=== PATIENT | female | born 1980 | race African-American/Black ===

== ENCOUNTER 2019-09-15 14:11 | Inpatient (IN) | payer SELFPAY ==
[~2019-09-15 14:11] MED LIST: Iopamidol-370 76% 500 ML 1 ML ONE
--- NOTE | 2019-09-15 14:29 | CT ---
CT HEAD WITHOUT IV CONTRAST COMPARISON: None HISTORY: Stroke alert, facial droop. Altered mental status. Unsteady on feet. TECHNIQUE: Axial CT imaging at 5 mm intervals from vertex through skull base without contrast FINDINGS: There is no evidence of an acute infarction, hemorrhage, mass effect, or midline shift. The ventricul ar system is normal in size, shape, and position. Opacification of multiple ethmoidal air cells is present. Mucosal thickening is seen throughout the r emainder of the visualized paranasal sinuses with suggestion of tiny air-fluid levels in the right maxillary antrum and each sphenoid sinus. Mastoid air cells are clear. Osseous structures appear intact. IMPRESSION: 1. No acute intracranial abnormality demonstrated. 2. Pansinus disease with a few scattered air-fluid levels seen which can be seen with acute sinusitis . There is suggestion of minimal increased density seen in areas of ethmoidal air cell opacification which may be related to inspissated secretions or fungal infection. 3. Above findings discussed with Dr. Gonsalez in the emergency department on 09/15/2019 at 1423 hours.
[2019-09-15 14:38] LABS: #Basophils 0.1 thou/uL (0.0-0.2); #Eosinphils 0.6 thou/uL (0.0-0.7); #Lymphocytes 2.7 thou/uL (1.20-3.40); #Monocytes 0.8 thou/uL (0.11-0.59); #Neutrophils 7.5 thou/uL (1.40-6.50); %Basophils 0.7 % (0.0-1.0); %Eosinophils 4.8 % (0.0-10.0); %Lymphocytes 22.8 % (21.0-51.0); %Monocytes 7.2 % (0.0-10.0); %Neutrophils 64.5 % (42.0-75.0); Hemoglobin 13.5 g/dL (12.0-16.0); Mean Corpuscular HGB CONC 33.2 g/dL (32.0-36.0); Mean Corpuscular Hemoglobin 27.5 pg (27.0-31.0); Mean Corpuscular Volume 82.7 fL (78.0-98.0); Mean Platelet Volume 7.8 fL (7.4-10.4); Platelet Count 376 thou/uL (130-400); RBC Distribution Width 13.7 % (11.5-14.5); Red Blood Cell (RBC) Count 4.92 mill/uL (4.20-5.40); White Blood Cell (WBC) Count 11.7 thou/uL (4.8-10.8)
[2019-09-15 14:55] LABS: Acetaminophen Less than 6.0 mcg/mL (10.0-30.0); Alcohol Less than 10 mg/dL (Less than 10); Salicylate Less than 8.0 mg/dL (15.0-30.0)
--- NOTE | 2019-09-15 14:58 | CT ---
EXAM: CT ANGIOGRAM OF THE HEAD AND NECK INDICATION: Stroke alert. Facial droop. Altered mental status. Patient is unsteady on her feet. COMPARISON: None. TECHNIQUE: CT angiogram of the head and neck are performed in the axial plane. Three-dimensional reformatted stephanie ges are submitted for interpretation. FINDINGS: CTA OF THE HEAD WITH AND WITHOUT CONTRAST: POSTCONTRAST CT OF BRAIN: Pathologic enhancement: No pathologic enhancement the brain. Postcontrast soft tissue neck CT: Sinuses: There is extensive paranasal sinus mucosal thickening. Orbits: Bilateral ocular lenses are appropriately located. Both globes are intact. Retrobulbar fat is preserved. Symmetric attenuation the optic nerves and ocular rectus muscles. Salivary glands:Symmetric attenuation of the parotid and symmetrical glands. Thyroid gland: Unremarkable. Lymph nodes: No evidence of lymphadenopathy by size criteria. Paraspinal muscles: Symmetric attenuation of the sternocleidomastoid muscles. Appropriate attenuation of the paraspinal muscles. Cervical spine:Vertebral body height is maintained. No fracture. No significant central canal stenosi s or significant neural foraminal narrowing. Limited evaluation by technique. Upper mediastinum and lung apices: No acute abnormality with regards to the upper mediastinum. There are groundglass opacities involving the visualized lung apices/lung parenchyma. Correlate for edema or infiltrate. Incidentals: There is evidence of periodontal disease involving the left and right mandibular molar t eeth. CTA OF THE NECK WITH CONTRAST: Aorta: Appropriate enhancement and luminal diameter of the visualized aorta. Right carotid artery: The right carotid artery origin has appropriate enhancement and luminal diamete r. The innominate artery, common carotid artery, carotid bifurcation and internal carotid artery have appropriate enhancement and luminal diameter. Left carotid: Appropriate enhancement and luminal diameter of the origin left carotid artery. The com mon carotid artery, carotid bifurcation and internal carotid artery have appropriate enhancement and luminal diameter. Minimal calcified plaque in the left carotid bifurcation. No significant stenos is based upon NASCET criteria. Subclavian arteries:Patent and symmetric Vertebral arteries:Limited evaluation of both vertebral artery origins. Bilateral cervical vertebral arteries are patent throughout their course in the neck. Vertebral arteries are nearly codominant. CTA OF THE BRAIN: Intracranial internal carotid arteries:Appropriate enhancement and luminal diameter of the petrous po rtion of both internal carotid arteries. There is atherosclerosis with mild narrowing involving both cavernous segments. Bilateral paraclinoid segments are unremarkable. Anterior circulation: Symmetric enhancement and luminal diameter of the A1 segments, M1 segments, pro ximal MCA branches and proximal A2 segments. Intracranial vertebral arteries: Both intracranial vertebral arteries are patent. Limited evaluation of both PICA artery origins. Posterior circulation: Both vertebral arteries supply a normal-appearing basilar artery. Right P1 seg ment has appropriate enhancement and luminal diameter. The left [employer] has a origin. No significant stenosis. IMPRESSION: 1. No hemodynamically significant stenosis, occlusion or aneurysmal formation. 2. Atherosclerosis involving bilateral cavernous segments without evidence of high-grade occlusion. Results of study discussed with Cee-Cee answered Dr. Gonsalez's phone 09/15/2019 2:56 PM Code CR Transcribed Date/Time: 09/15/2019 3:24 PM
[2019-09-15 15:04] LABS: ALT (SGPT) 15 U/L (8-55); AST (SGOT) 17 U/L (5-34); Albumin 4.3 g/dL (3.5-5.0); Alkaline Phosphatase 64 U/L (40-110); Anion Gap 14 mmol/L (10-20); BUN (Urea Nitrogen) 9 mg/dL (7.0-18.7); Bilirubin, Total 0.3 mg/dL (0.2-1.2); CK (CPK) 266 U/L (29-168); Calc. Creatinine Clearance 0 mL/min (70-130); Calcium 9.6 mg/dL (7.8-10.44); Carbon Dioxide 21 mmol/L (22-29); Chloride 106 mmol/L (98-107); Estimated GFR-MDRD 84; Globulin 3.7 g/dL (2.4-3.5); Glucose 71 mg/dL (70-105); Lipase 17 U/L (8-78); Potassium 4.1 mmol/L (3.5-5.1); Sodium 137 mmol/L (136-145)
[2019-09-15 15:07] LABS: BHCG - Serum Negative (NEGATIVE); Pregs Control Background? CLEAR/WHITE (CLR/WHITE); Pregs Control Bar Appear? YES (CONTROL BAR)
[2019-09-15 15:18] LABS: CKMB 2.1 ng/mL (0-6.6)
--- NOTE | 2019-09-15 15:18 | RAD ---
EXAM: CHEST ONE VIEW HISTORY: Stroke symptoms. Altered mental status. COMPARISON: None FINDINGS: Cardiac silhouette is magnified by projection but is probably mildly enlarged.. The pulmonary vascula ture is within normal limits. The lungs are clear. The osseous structures are intact. IMPRESSION: 1. No acute cardiopulmonary process. 2. Mild cardiomegaly.
[2019-09-15 15:21] LABS: Thyroid Stimulating Hormone 0.4786 uIU/mL (0.35-4.94)
[2019-09-15 17:19] LABS: Troponin I 0.094 ng/mL (< 0.028)
[2019-09-15] MEDS ORDERED: Senokot S 8.6-50 MG TAB PO PRN (18:08)
[2019-09-15] MEDS ORDERED: Acetaminophen 325 MG TAB PO PRN (18:08)
[2019-09-15 18:13] LABS: Bilirubin Negative (Negative); Blood, Urine Negative (Negative); Clarity Clear (Clear); Glucose, Urine (Dipstick) Normal (Negative); Leukocyte Negative Leu/uL (Negative); Nitrite Negative (Negative); Protein, Urine (Dipstick) 20 mg/dL (Neg-Trace); Urobilinogen Normal mg/dL (Less than 2)
[2019-09-15 18:17] LABS: Amphetamine Not Detected (NotDetected); Barbiturates Screen Not Detected (NotDetected); Benzodiazepine Screen Not Detected (NotDetected); Cocaine Metabolite Screen Not Detected (NotDetected); Medtox Control Line Valid? VALID (VALID); Medtox Reader # READER 4; Methadone Not Detected (NotDetected); Methamphetamine Not Detected (NotDetected); Opiate Screen Not Detected (NotDetected); Oxycodone Screen Not Detected (NotDetected); Phencyclidine (PCP) Not Detected (NotDetected); THC/Cannabinoid Screen Not Detected (NotDetected); Tricyclic Screen Not Detected (NotDetected)
[2019-09-15] MEDS ORDERED: Aspirin 325 mg Enteric Coated Tablet PO SCH (21:15)
[2019-09-15] MEDS: Meclizine HCl 25 MG TAB PO SCH (21:23)
[2019-09-15] MEDS: Famotidine 20 MG TAB PO SCH (21:23)
[2019-09-15 21:41] LABS: Troponin I 0.084 ng/mL (< 0.028)
--- NOTE | 2019-09-15 22:34 | HP ---
CHIEF COMPLAINT: Stroke-like symptoms. PRIMARY CARE PHYSICIAN: None. HISTORY OF PRESENT ILLNESS: Ms. Ferguson is a very pleasant 39-year-old female, who reported to the emergency room today via EMS with stroke-like symptoms. She reports last seen normal was last night. Reports that she woke up this morning and felt like the room was spinning. She denies any changes in vision. Denies any nausea, vomiting. Denies any fever. Denies any upper respiratory symptoms. Denies anything that makes it better or worse. During exam today, patient is having trouble finding words. Past medical history pertinent for her cardiac history. Reports that she has had a stent in the past year, is also a smoker. Reports that she smokes about a pack a day. In the emergency room, she had abnormal hagchv-ld-yogo test and our exam on admission shows some mild right-sided weakness. No facial droop was appreciated. She was also found to have an elevated troponin in the indeterminate range of 0.075, second one was 0.094. She denies any chest pain. She does report intermittent sharp pain on the right upper quadrant, which has been going on for the last 6 months. Denies any pain today. Brain CT of the head was negative for acute findings. CTA of the neck and brain was also negative for any acute findings or any occlusions. The patient will be admitted to the stroke unit for further management. ALLERGIES: NONE. HOME MEDICATIONS: Reports that she takes medications for blood pressure, but is not sure which ones. REVIEW OF SYSTEMS: Reports feeling the room is spinning. Denies any nausea, vomiting. Denies any abdominal pain. Denies any fever or chills. All systems are reviewed and negative unless mentioned in the HPI. PAST MEDICAL HISTORY: Hypertension. PAST SURGICAL HISTORY: Has a history of a stent. PSYCHIATRIC HISTORY: None. SOCIAL HISTORY: She is a tobacco smoker, smokes about a pack a day. She lives in a home alone. PHYSICAL EXAMINATION: VITAL SIGNS: Blood pressure 172/99, pulse 78, respirations 18, temperature is 98.7, pO2 sats are 98% on room air. CONSTITUTIONAL: The patient is alert and oriented to person, place, and time. She is sitting up, eating her dinner. The patient does have trouble with word-finding. HEENT: Head is atraumatic and normocephalic. Eyes, pupils are equally round and reactive to light. Extraocular muscles are intact. ENT, mouth exam is normal. Mucous membranes are moist. NECK: Normal range of motion. Trachea is midline. RESPIRATORY: Chest, breath sounds are clear. Chest expansion is equal. CARDIOVASCULAR: Regular rate and rhythm. Heart sounds are normal. ABDOMEN: Nontender. Bowel sounds are heard. BACK: Normal range of motion. No tenderness. EXTREMITIES: Upper extremity, normal strength. Sensation is intact. Radial pulses are normal. Lower extremity, normal range of motion. Sensation intact. Pedal pulses are normal. NEUROLOGIC: She is oriented to person, place, and time. Has abnormal word-finding, abnormal sennmz-jj-brjm test, drifts right side. Normal mbgc-sj-pbkq. SKIN: Warm and dry, normal in color. PSYCHIATRIC: Normal affect. EKG in the emergency room shows normal sinus rhythm, beats per minute 82, nonspecific T-waves, axis is left. ASSESSMENT: 1. Dizziness with word-finding, mild right-sided drift. CT and CTA in the emergency room were negative. We will order an MRI without contrast, echocardiogram. We will ask PT/OT, Speech to evaluate. TSH, lipids added to morning labs, CBC and basic metabolic panel. 2. Elevated troponin with nonspecific EKG. We will trend troponins. Depending on MRI results and evaluation in the a.m., stress test may be warranted. The patient is not experiencing any chest pain currently, so this maybe pertinent to wait until outpatient setting. 3. History of hypertension. Reconcile medications in a.m. Permissive hypertension for now. 4. Deep venous thrombosis and gastrointestinal prophylaxis started. Job ID: [id number]
[2019-09-15 23:24] VITALS: BMI 43.6
[2019-09-16] MEDS: Sodium Chloride 0.9% 1,000 ML IV SCH ×2 (00:31→16:04)
[2019-09-16 05:21] LABS: #Basophils 0.1 thou/uL (0.0-0.2); #Eosinphils 0.7 thou/uL (0.0-0.7); #Lymphocytes 2.7 thou/uL (1.20-3.40); #Monocytes 0.8 thou/uL (0.11-0.59); #Neutrophils 5.7 thou/uL (1.40-6.50); %Basophils 1.2 % (0.0-1.0); %Eosinophils 6.7 % (0.0-10.0); %Monocytes 7.5 % (0.0-10.0); %Neutrophils 57.5 % (42.0-75.0); Hemoglobin 12.3 g/dL (12.0-16.0); Mean Corpuscular HGB CONC 32.6 g/dL (32.0-36.0); Mean Corpuscular Hemoglobin 27.2 pg (27.0-31.0); Mean Corpuscular Volume 83.4 fL (78.0-98.0); Mean Platelet Volume 8.2 fL (7.4-10.4); Platelet Count 347 thou/uL (130-400); RBC Distribution Width 13.8 % (11.5-14.5); Red Blood Cell (RBC) Count 4.54 mill/uL (4.20-5.40)
[2019-09-16 05:41] LABS: ALT (SGPT) 13 U/L (8-55); AST (SGOT) 15 U/L (5-34); Albumin 3.7 g/dL (3.5-5.0); Alkaline Phosphatase 55 U/L (40-110); Anion Gap 14 mmol/L (10-20); BUN (Urea Nitrogen) 9 mg/dL (7.0-18.7); Bilirubin, Total Less than 0.2 mg/dL (0.2-1.2); Calc. Creatinine Clearance 177 mL/min (70-130); Carbon Dioxide 20 mmol/L (22-29); Cardiac Risk 5.2 (Less than 4.5); Chloride 108 mmol/L (98-107); Cholesterol 186 mg/dl (< 200 Desired); Estimated GFR-MDRD Greater than 90; Globulin 3.3 g/dL (2.4-3.5); Glucose 86 mg/dL (70-105); HDL Cholesterol 36 mg/dL (>60 Neg Risk); LDL Cholesterol, Calculated 132 mg/dL; Potassium 4.3 mmol/L (3.5-5.1); Sodium 138 mmol/L (136-145); Triglycerides 89 mg/dL (Less than 150)
[2019-09-16] MEDS: Meclizine HCl 25 MG TAB PO SCH ×3 (06:51→21:05)
[2019-09-16] MEDS: Enoxaparin Sodium 40 MG/0.4 ML SYRINGE SC SCH (09:11)
[2019-09-16] MEDS: Famotidine 20 MG TAB PO SCH ×2 (09:11→21:05)
[2019-09-16] MEDS: Aspirin 325 mg Enteric Coated Tablet PO SCH (09:11)
--- NOTE | 2019-09-16 11:41 | MRI ---
MRI Brain WO Con History: Cerebrovascular accident Comparison: CT brain prior day Findings: On the diffusion weighted imaging sequence there is an acute infarction of the medial left thalamus and posterior limb left internal capsule. This is confirmed on the ADC map. On the susceptibility weighted imaging sequence there are no abnormal foci of hemorrhage. Marked mucosal thickening of the maxillary, ethmoid, and frontal sinuses. No midline shift. No mass effect. Marrow signal of the calvarium is maintained. Corpus callosum is in tact. Impression: Acute small left thalamic and posterior limb left internal capsule infarction.
--- NOTE | 2019-09-16 12:37 | PDOC.HOSPP ---
- Subjective Encounter Date: 09/16/19 Encounter Time: 10:30 Subjective: The patient' s dizziness has improved. According to her father she was confused what year it was. Dizziness has been going on for a few days. Patient denies numbness or weakness in her extremities. She was admitted here for NSTEMI in 2018. Had 100% lesion on the ramus. She denies chest pain. Patient states she takes aspirin but stopped all of her other medications for the past year, she is unclear why. She follows at [facility]. Never followed up with Dr. Chin. Father states patient has not fallen. She denies tinnitus, ear ringing, or hearing loss - Objective Vital Signs & Weight: Vital Signs (12 hours) Temp Pulse Resp BP Pulse Ox 09/16/19 11:00 98.1 F 81 18 179/119 H 97 09/16/19 07:00 98.5 F 72 17 164/78 H 92 L 09/16/19 03:20 98.5 F 82 16 128/73 94 L Weight Weight 254 lb I&O: 09/15/19 09/16/19 09/17/19 06:59 06:59 06:59 Intake Total 500 Output Total 1 Balance 499 Result Diagrams: 09/16/19 04:49 09/16/19 04:49 Hospitalist ROS - Review of Systems Constitutional: denies: fever, chills - Medication Medications: Active Medications Generic Name Dose Route Start Last Admin Trade Name Freq PRN Reason Stop Dose Admin Aspirin 325 mg 09/16/19 09:00 09/16/19 09:11 Ecotrin PO 325 mg DAILY ARI Administration Enoxaparin Sodium 40 mg 09/16/19 09:00 09/16/19 09:11 Lovenox SC 40 mg 0900 ARI Administration Famotidine 20 mg 09/15/19 21:00 09/16/19 09:11 Pepcid PO 20 mg BID ARI Administration Sodium Chloride 1,000 mls @ 75 mls/hr 09/15/19 22:00 09/16/19 00:31 Normal Saline 0.9% IV 1,000 mls .[id number] ARI Administration Meclizine HCl 25 mg 09/15/19 22:00 09/16/19 06:51 Antivert PO 25 mg Q8HR ARI Administration - Exam General Appearance: NAD, awake alert Eye: PERRL, anicteric sclera ENT: normocephalic atraumatic, no oropharyngeal lesions Neck: supple, symmetric, no JVD, no thyromegaly Heart: RRR, no murmur, no gallops, no rubs Respiratory: CTAB, no wheezes, no rales, no ronchi Gastrointestinal: soft, non-tender, non-distended, normal bowel sounds Extremities: no cyanosis, no clubbing, no edema Skin: normal turgor, no lesions, no rashes Neurological: cranial nerve grossly intact, no focal deficits, speech deficit Neurological - other findings: left sided ptosis. Possible cataract both eyes, but visual acuity intact Musculoskeletal: normal tone, normal strength, no muscle wasting Psychiatric: normal affect, normal behavior Hosp A/P - Plan This is a 39 year old female who presented with dizziness for the past few days , found to have an acute sroke Acute small left thalamic and posterior limb left internal capsule infarction - received aspirin 325. CT head showed possible acute sinusitis. CTA showed no stenosis, chest Xray mild cardiomegaly, ECHO pending - Neurology consulted - may need to add plavix back - resume atorvastatin - PT/OT/speech consult CAD s/p NSTEMI - supposed to be on aspirin and plavix - troponin elevated to 0.9. ECHO pending. Will order nuclear stress test prior to discharge Hypertension - hold lisinopril and coreg for now Code status: full code
[2019-09-16] MEDS ORDERED: Atorvastatin Calcium 40 MG TAB PO SCH (12:45)
--- NOTE | 2019-09-16 17:51 | CON ---
DATE OF CONSULTATION: CHIEF COMPLAINT: Acute stroke. HISTORY OF PRESENT ILLNESS: The patient reports she was brought to the ER because she was having difficulty with word finding and she also developed vision problems. This is her medical history that she gave us. She is not able to give a proper medical history for some reason, and I also looked at her medical chart, which states the patient was noted to have stroke-like symptoms. She woke up with room spinning and she felt there was no vision changes she reported to anyone in the ER. She also has had some word-finding difficulty. She has reported persistent symptoms. ALLERGIES: NO KNOWN DRUG ALLERGIES. PREVIOUS MEDICAL HISTORY: Positive for hypertension. PAST SURGICAL HISTORY: Coronary artery disease with a stent placed in about a year ago. FAMILY HISTORY: Her siblings are healthy. Parents are in their 60s. No history of CVA. She thinks someone had an IL in their family, but she is not very sure. SOCIAL HISTORY: She smokes 1 pack a day. She lives in a home alone by herself. No alcohol. She works full-time and she works as a co founder and chairman. REVIEW OF SYSTEMS: PULMONARY: Negative for shortness of breath or cough. GI: Negative for nausea, vomiting, or diarrhea. NEUROLOGIC: Positive for numbness and word-finding difficulties and dizziness. OPHTHALMOLOGIC: Positive for double vision. DERMATOLOGIC: Negative for skin rash. HEMATOLOGIC: Negative for any bleeding diathesis. LABORATORY WORKUP: White count 10, hemoglobin 12.3, hematocrit 37.8, and platelet count 347. Chemistry; sodium 138, potassium 4.3, chloride 108, bicarb 20, BUN 9, creatinine 0.76, and glucose 86, and liver functions are within normal limits. Cholesterol, triglycerides and LDL and HDL were all within normal limits. IMAGING STUDIES: MRI of the brain was reviewed. She has a left thalamic and internal capsule infarction in the posterior limb of internal capsule. Echocardiogram was reviewed. She has lateral wall hypokinesis. CT angiogram of the head and neck was reviewed and there was no hemodynamically significant stenosis noted on the CTA. PHYSICAL EXAMINATION: VITAL SIGNS: Temperature 98.3, pulse 78, O2 sats 97, and blood pressure 155/79. CHEST: Clear vesicular breathing. CARDIOVASCULAR: S1 and S2 heard. No murmurs. ABDOMEN: Soft. NEUROLOGIC: Higher intellectual functions. Normal orientation to time, place, and person. Appropriate conversation and she did have some mild difficulties with expressing herself. I think she has mild expressive aphasia. Cranial nerves; normal extraocular movements, except mild right eye deviation and dysconjugate gaze on the right side. Pupils 2 mm, reactive to light. No facial asymmetry noted. Tongue midline. Normal elevation of palate. Normal hearing bilaterally. Motor bulk normal, tone normal. Strength 5/5 in upper and lower extremities, in iliopsoas, hamstrings, quadriceps, ankle dorsiflexion, plantar flexion, deltoid, biceps, triceps, wrist extension and flexion, finger extension and flexion bilaterally. Sensory normal to touch bilaterally. Cerebellar, normal nlhccl-oc-ayuv and qdhu-bl-krkm. Deep tendon reflexes were absent. Gait not tested. IMPRESSION: The patient is a 39-year-old lady with left thalamic and internal capsule infarct. Her positive risk factor is primarily hypertension and some social stressors. Her examination shows difficulty in word finding and dysconjugate gaze on the right side. I am not sure if this is chronic or new. She does not have any weakness. She did have mild right facial asymmetry. Clinical history and findings are more consistent with mild deficits from her current cerebrovascular accident. Reason for the cerebrovascular accident is likely microvascular event secondary to hypertension. RECOMMENDATIONS: I suggested that she take aspirin along with statin for stroke prophylaxis in future. I am hoping she does not have any cardiac arrhythmia on telemetry. Please call me if you have any further questions. Job ID: [id number]
[2019-09-17] MEDS: Meclizine HCl 25 MG TAB PO SCH ×3 (06:28→21:51)
[2019-09-17] MEDS ORDERED: Carvedilol 3.125 MG TAB PO SCH ×2 (10:15→10:45)
[2019-09-17] MEDS ORDERED: Lisinopril 2.5 MG TAB PO SCH ×2 (10:15→10:45)
[2019-09-17] MEDS: Enoxaparin Sodium 40 MG/0.4 ML SYRINGE SC SCH (12:20)
[2019-09-17] MEDS: Aspirin 325 mg Enteric Coated Tablet PO SCH (12:20)
[2019-09-17] MEDS: Famotidine 20 MG TAB PO SCH ×2 (12:20→21:51)
[2019-09-17] MEDS: Sodium Chloride 0.9% 1,000 ML IV SCH (12:22)
[2019-09-17] MEDS: Carvedilol 3.125 MG TAB PO SCH (16:27)
--- NOTE | 2019-09-17 16:43 | PDOC.HOSPP ---
- Subjective Encounter Date: 09/17/19 Encounter Time: 10:30 Subjective: The patient is doing better. She still has some trouble with word finding. Denies chest pain or shortness of breath. No numbness or weakness. She is oriented to month today - Objective Vital Signs & Weight: Vital Signs (12 hours) Temp Pulse Pulse Resp BP BP Pulse Ox 09/17/19 15:42 98.3 F 79 16 151/91 H 95 09/17/19 14:45 83 171/95 H 09/17/19 12:00 98.5 F 78 19 176/94 H 97 09/17/19 07:54 98.3 F 76 13 177/84 H 92 L Weight Weight 254 lb I&O: 09/16/19 09/17/19 09/18/19 06:59 06:59 06:59 Intake Total 500 1325 100 Output Total 1 1000 Balance 499 325 100 Result Diagrams: 09/16/19 04:49 09/16/19 04:49 Hospitalist ROS - Review of Systems Constitutional: denies: fever, chills - Medication Medications: Active Medications Generic Name Dose Route Start Last Admin Trade Name Freq PRN Reason Stop Dose Admin Aspirin 325 mg 09/16/19 09:00 09/17/19 12:20 Ecotrin PO 325 mg DAILY ARI Administration Carvedilol 3.125 mg 09/17/19 17:00 09/17/19 16:27 Coreg PO 3.125 mg BID- ARI Administration Enoxaparin Sodium 40 mg 09/16/19 09:00 09/17/19 12:20 Lovenox SC 40 mg 0900 ARI Administration Famotidine 20 mg 09/15/19 21:00 09/17/19 12:20 Pepcid PO 20 mg BID ARI Administration Meclizine HCl 25 mg 09/15/19 22:00 09/17/19 13:38 Antivert PO 25 mg Q8HR ARI Administration Sodium Chloride 10 ml 09/15/19 18:08 09/16/19 21:05 Flush - Normal Saline IVF 10 ml Q12HR PRN Administration Saline Flush - Exam General Appearance: NAD, awake alert Eye: PERRL, anicteric sclera ENT: normocephalic atraumatic, no oropharyngeal lesions Neck: no JVD Heart: RRR, no murmur, no gallops, no rubs Respiratory: CTAB, no wheezes, no rales, no ronchi Gastrointestinal: soft, non-tender, non-distended, normal bowel sounds Extremities: no cyanosis, no clubbing, no edema Skin: normal turgor, no lesions, no rashes Hosp A/P - Plan ECHO: lateral wall hypokinesis, trace MR, trace TR, EF 50-55% This is a 39 year old female who presented with dizziness for the past few days , found to have an acute stroke #Acute small left thalamic and posterior limb left internal capsule infarction - received aspirin 325. CT head showed possible acute sinusitis. CTA showed no stenosis, chest Xray mild cardiomegaly, ECHO showed lateraw - Neurology consulted and following - resume atorvastatin - PT recommending home - ST unable to see patient yet #CAD s/p NSTEMI #Elevated troponin - supposed to be on aspirin and plavix as outpatient. Trop elevated, ECHO showed lateral wall hypokinesis. Stress test prelim negative today, resting portion to be done tomorrow #Hypertension - hold lisinopril and coreg for now Dispo: possible d/c pending stress results Code status: full code
[2019-09-17] MEDS: Atorvastatin Calcium 40 MG TAB PO SCH (21:51)
[2019-09-18] MEDS: Meclizine HCl 25 MG TAB PO SCH ×3 (05:52→21:49)
[2019-09-18] MEDS: Aspirin 325 mg Enteric Coated Tablet PO SCH (09:15)
[2019-09-18] MEDS: Enoxaparin Sodium 40 MG/0.4 ML SYRINGE SC SCH (09:15)
[2019-09-18] MEDS: Lisinopril 2.5 MG TAB PO SCH (09:15)
[2019-09-18] MEDS: Carvedilol 3.125 MG TAB PO SCH (09:15)
[2019-09-18] MEDS: Famotidine 20 MG TAB PO SCH ×2 (09:15→21:49)
--- NOTE | 2019-09-18 09:35 | NM ---
EXAM: Nuclear Medicine Cardiac SPECT with EF and wall motion: HISTORY: Dizziness elevated troponin abnormal ECG history of NE Protocol: Exam was performed using adenosine protocol. The patient is injected with 33 millicuries of technetium 99m sestamibi intravenously for stress imag es. The patient is injected with 33 millicuries of technetium 99 sestamibi intravenously for resting imag es. Multiple SPECT images are performed in the short axis, vertical long axis, and horizontal long axis. FINDINGS: There is evidence for fairly extensive ischemia including anterior apical region and some basilar lat eral wall. In addition there is evidence for some significant infarct change including the lateral wall. TID:1.01 LHR:0.34 EDV:231 mL EF:36% Wall motion:Marked generalized hypokinesis with some apical inferior lateral dyskinesis. IMPRESSION: Markedly abnormal scan with fairly extensive infarct and ischemic changes as above.
--- NOTE | 2019-09-18 16:33 | PDOC.HOSPP ---
- Subjective Encounter Date: 09/18/19 Encounter Time: 10:00 Subjective: The patient is doing well. Has mild dizziness while walkin but no other complaints. No chest pain or shortness of breath . She states it is October 2002 - Objective Vital Signs & Weight: Vital Signs (12 hours) Temp Pulse Pulse Pulse Resp BP BP 09/18/19 15:44 98.0 F 67 17 09/18/19 13:41 73 72 193/102 H 09/18/19 11:32 98.2 F 71 14 09/18/19 09:15 63 178/109 H 09/18/19 07:10 98.1 F 69 18 BP BP Pulse Ox 09/18/19 15:44 153/72 H 98 09/18/19 13:41 179/90 H 09/18/19 11:32 170/78 H 97 09/18/19 09:15 09/18/19 07:10 166/70 H 98 Weight Weight 254 lb I&O: 09/17/19 09/18/19 09/19/19 06:59 06:59 06:59 Intake Total 1325 100 420 Output Total 1000 1000 Balance 325 -900 420 Result Diagrams: 09/16/19 04:49 09/16/19 04:49 Hospitalist ROS - Review of Systems Constitutional: denies: fever, chills Eyes: denies: pain, vision change ENT: denies: ear pain, ear discharge - Medication Medications: Active Medications Generic Name Dose Route Start Last Admin Trade Name Freq PRN Reason Stop Dose Admin Aspirin 325 mg 09/16/19 09:00 09/18/19 09:15 Ecotrin PO 325 mg DAILY ARI Administration Atorvastatin Calcium 40 mg 09/17/19 21:00 09/17/19 21:51 Lipitor PO 40 mg HS ARI Administration Famotidine 20 mg 09/15/19 21:00 09/18/19 09:15 Pepcid PO 20 mg BID ARI Administration Lisinopril 2.5 mg 09/18/19 09:00 09/18/19 09:15 Zestril PO 2.5 mg DAILY ARI Administration Meclizine HCl 25 mg 09/15/19 22:00 09/18/19 13:06 Antivert PO 25 mg Q8HR ARI Administration Sodium Chloride 10 ml 09/15/19 18:08 09/17/19 21:51 Flush - Normal Saline IVF 10 ml Q12HR PRN Administration Saline Flush - Exam General Appearance: NAD, awake alert Eye: PERRL, anicteric sclera ENT: normocephalic atraumatic, no oropharyngeal lesions Neck: no JVD Heart: RRR, no murmur, no gallops, no rubs Respiratory: CTAB, no wheezes, no rales, no ronchi Gastrointestinal: soft, non-tender, non-distended, normal bowel sounds, no palpable masses, no hepatomegaly, no splenomegaly, no bruit Extremities: no cyanosis, no clubbing, no edema Skin: normal turgor, no lesions, no rashes Neurological: cranial nerve grossly intact, normal sensation to touch, no focal deficits, no new deficit Musculoskeletal: normal tone, normal strength, no muscle wasting Hosp A/P - Plan ECHO: lateral wall hypokinesis, trace MR, trace TR, EF 50-55% Nuclear stress test: markedly abnormal scan with fairly extensive infarct and ischemic changes with apical inferior lateral dyskinesis, EF 35% This is a 39 year old female who presented with dizziness for the past few days , found to have an acute stroke #Acute small left thalamic and posterior limb left internal capsule infarction - received aspirin 325. CT head showed possible acute sinusitis. CTA showed no stenosis, chest Xray mild cardiomegaly, ECHO showed lateral wall hypokinesis - Neurology consulted and following, recommended continuing aspirin and statin - PT recommending home - ST consulted #CAD s/p NSTEMI #Elevated troponin - supposed to be on aspirin and plavix as outpatient. Trop elevated, ECHO showed lateral wall hypokinesis. Stress test abnormal, cardiology consulted. ( GRACIELA) #Hypertension - resume antihypertensives Dispo: pending cardiology consultation Code status: full code
[2019-09-18] MEDS: Carvedilol 6.25 MG TAB PO SCH (17:28)
--- NOTE | 2019-09-18 19:41 | CON ---
DATE OF CONSULTATION: HISTORY OF PRESENT ILLNESS: Uziel Ferguson is a 39-year-old black female, who was admitted here in September 2017 with a STEMI. At that time, her name was Uziel Vasquez. She apparently presented here approximately 2 hours after onset of pain and was seen by Dr. Chin. She was taken to the clinical lab clerk emergently and had complete occlusion of a large ramus branch. She underwent placement of Rebel 3.0 x 20 mm , 3.0 x 16 mm, and 2.75 x 12 mm stents. Results were excellent. Her peak troponin was 98.346. She denies any further episodes of chest discomfort since that time. She was discharged on carvedilol 6.25 b.i.d., lisinopril 5 mg daily, aspirin 81 daily, Plavix 75 daily, and atorvastatin 40 at bedtime. However, at the present time, she is only taking aspirin 81 q.a.m. She then presented on 09/15/19, complaining of visual changes. She had troponin I, is up to 0.094. Brain CT revealed no acute abnormality, but sinus infections. Brain MRI revealed acute small left thalamic and posterior limb left internal capsule infarct. CT angiogram of the head and neck revealed no significant stenosis. She denies any chest discomfort. Due to the abnormal troponin, she underwent adenosine Cardiolite testing, which revealed ischemia involving the anterior apical region and some in the basal lateral wall. In addition, there is evidence for infarction of the lateral wall. Again, she denies any chest pain. PAST MEDICAL HISTORY: Hypertension and hypercholesterolemia, noncompliant with medications. No history of diabetes. MEDICATIONS: Aspirin 81 daily. ALLERGIES: NONE. SOCIAL HISTORY: She smokes 1/2 pack per day. She does not drink. REVIEW OF SYSTEMS: Otherwise, unremarkable. PHYSICAL EXAMINATION: VITAL SIGNS: Blood pressure 153/72, pulse of 67. HEENT: PERRL. NECK: Supple. CHEST: Clear. CARDIAC: S1 and S2 normal without any S3, S4, or murmurs. Carotid upstrokes normal without bruits. ABDOMEN: Obese, normal bowel sounds. EXTREMITIES: Revealed no clubbing, cyanosis, or edema. NEUROLOGICAL: Grossly intact. SKIN: Warm and dry. LABORATORY DATA: EKG reveals normal sinus rhythm with nonspecific T-wave changes. CBC is unremarkable. Sodium 138, potassium 4.3, chloride 108, carbon dioxide 20 , BUN 9, and creatinine 0.76. Troponin I up to 0.094. Cholesterol 186, triglycerides 89, HDL 36, LDL 132. Urine drug screen is unremarkable. IMPRESSION: 1. Left thalamic and internal capsule infarction. 2. Noncompliance with antihypertensives and statin medication. 3. History of ST-elevation myocardial infarction with bare metal stent placement in the ramus in September [address] Chin. 4. Hypertension. 5. Hypercholesterolemia. 6. Smoker. PLAN: With her current blood pressure, I would further increase the carvedilol from 3.125 b.i.d. to 6.25 b.i.d. From her scan results, this could be due to her previous infarction or she certainly may have restenosis or even closed her stent. She will be further evaluated by Dr. Chin in the morning and will be kept n.p.o. Lovenox will be discontinued. Her aspirin has been increased from 81 to 325 daily. Job ID: [id number] [facility]
[2019-09-18] MEDS: Atorvastatin Calcium 40 MG TAB PO SCH (21:49)
[2019-09-19] MEDS: Meclizine HCl 25 MG TAB PO SCH ×3 (06:27→21:26)
[2019-09-19] MEDS ORDERED: Heparin 10,000 UNITS/1 ML VIAL ONE (07:02)
[2019-09-19] MEDS ORDERED: Verapamil 5 MG/2 ML VIAL ONE (07:02)
[2019-09-19] MEDS ORDERED: Nitroglycerin 100MG/250ML BOT 250 ML ONE (07:02)
--- NOTE | 2019-09-19 07:07 | PRG ---
DATE OF SERVICE: 09/18/2019 I visited with Ms. Ferguson today after finding out Ms. Ferguson has changed her name and was actually one of my patients. She was seen and evaluated in 2018, where she underwent successful stent placement, however, has an acute myocardial infarction. She has been lost to followup. She recently had a stroke. She continues to have vision changes. Unfortunately, she continues to be in denial. I visited with her and her mother and father as well as her aunt. She has a very large defect present on recent stress study. I would agree with Dr. Banda and proceed with coronary angiography. I discussed the procedure in full detail with Ms. Ferguson. Risks included, but not limited to the following: , stroke, TN, need for emergency surgery, loss of limb, bleeding, and infection, as well as a reaction to the dye causing kidney failure and needing long-term dialysis. I also discussed the risks of PCI to include all of the above including coronary dissection and perforation in addition to acute stent thrombosis and restenosis. All questions about the procedure were answered. Given the above, the patient agreed to proceed with coronary angiography and possible PCI. All questions were answered. I am unsure whether the patient is able to take Plavix if needed for up to one year. The patient did have some reluctance. We will discuss again tomorrow. At this point, we will proceed with a bare-metal stent if needed. Further recommendations pending the above. Job ID: [id number]
[2019-09-19] MEDS ORDERED: Midazolam HCl 2 mg/2 ml Vial ONE (07:16)
[2019-09-19] MEDS ORDERED: Fentanyl 100 MCG/2 ML VIAL ONE (07:16)
[2019-09-19] MEDS ORDERED: Acetaminophen/Codeine 30-300mg Tablet PO PRN ×2 (07:34)
[2019-09-19] MEDS ORDERED: Nitroglycerin 0.4 MG TAB (25 Tab Bottle) SL PRN (07:34)
[2019-09-19] MEDS ORDERED: Sodium Chloride 0.9% 200 ML IV PRN (07:34)
[2019-09-19] MEDS ORDERED: hydrALAZINE 20 MG/ML VIAL ONE (07:37)
[2019-09-19] MEDS ORDERED: Sodium Chloride 0.9% 1,000 ML IV SCH (07:45)
[2019-09-19] MEDS: Carvedilol 6.25 MG TAB PO SCH ×2 (09:27→18:34)
[2019-09-19] MEDS: Lisinopril 2.5 MG TAB PO SCH (09:28)
[2019-09-19] MEDS: Famotidine 20 MG TAB PO SCH ×2 (09:29→21:25)
[2019-09-19] MEDS: Aspirin 325 mg Enteric Coated Tablet PO SCH (09:30)
[2019-09-19] MEDS ORDERED: Iopamidol 370 76% 100 ML VIAL ONE (09:41)
[2019-09-19] MEDS ORDERED: Lisinopril 2.5 MG TAB PO SCH (17:30)
[2019-09-19] MEDS ORDERED: Clopidogrel Bisulfate 75 MG TAB PO SCH (17:30)
--- NOTE | 2019-09-19 18:32 | PDOC.HOSPP ---
- Subjective Encounter Date: 09/19/19 Encounter Time: 18:00 Subjective: The patient is doing better. She states her cough has significantly improved and not hacking as much. She has been weaned down to room air. She has not ambulated yet. The patient states she ate one egg this morning and has been full since then Family states they feel patient is patient is depressed, never leaves her house and has no motivation to do anything asides use the bathroom. They said she was on antidepressant medication and was wondering if dose could be increased. Also concerned about diabetes due to family history of diabetes Patient is oriented times three today - Objective Vital Signs & Weight: Vital Signs (12 hours) Temp Pulse Resp BP BP BP Pulse Ox 09/19/19 16:00 98.1 F 67 16 143/71 H 100 09/19/19 11:22 97.7 F 71 14 169/81 H 98 09/19/19 09:40 60 18 158/72 H 09/19/19 09:28 70 168/79 H 09/19/19 09:27 168/79 H 09/19/19 09:25 99 09/19/19 08:00 97.7 F 63 18 151/72 H 99 09/19/19 07:34 60 18 158/72 H 99 Weight Weight 254 lb I&O: 09/18/19 09/19/19 09/20/19 06:59 06:59 06:59 Intake Total 100 779 Output Total 1000 Balance -900 779 Result Diagrams: 09/16/19 04:49 09/16/19 04:49 Hospitalist ROS - Review of Systems Constitutional: denies: fever, chills ENT: denies: ear discharge Respiratory: denies: cough, dry - Medication Medications: Active Medications Generic Name Dose Route Start Last Admin Trade Name Freq PRN Reason Stop Dose Admin Aspirin 325 mg 09/16/19 09:00 09/19/19 09:30 Ecotrin PO 325 mg DAILY ARI Administration Atorvastatin Calcium 40 mg 09/17/19 21:00 09/18/19 21:49 Lipitor PO 40 mg HS ARI Administration Carvedilol 6.25 mg 09/18/19 17:00 09/19/19 09:27 Coreg PO 6.25 mg BID-WM ARI Administration Famotidine 20 mg 09/15/19 21:00 03/03/20 09:29 Pepcid PO 20 mg BID ARI Administration Lisinopril 2.5 mg 09/18/19 09:00 09/19/19 09:28 Zestril PO 2.5 mg DAILY ARI Administration Meclizine HCl 25 mg 09/15/19 22:00 09/19/19 13:44 Antivert PO 25 mg Q8HR ARI Administration Sodium Chloride 10 ml 09/15/19 18:08 09/17/19 21:51 Flush - Normal Saline IVF 10 ml Q12HR PRN Administration Saline Flush - Exam General Appearance: NAD, awake alert Eye: PERRL Eye - other findings: no diplopia. Some dysconjugate gaze noted ENT: normocephalic atraumatic, no oropharyngeal lesions Neck: supple, no JVD Heart: RRR, no murmur, no gallops, no rubs Respiratory: CTAB, no wheezes, no rales, no ronchi Gastrointestinal: soft, non-tender, non-distended, normal bowel sounds Extremities: no cyanosis, no clubbing, no edema Skin: normal turgor, no lesions, no rashes Neurological: cranial nerve grossly intact, normal sensation to touch, no focal deficits, no new deficit Neurological - other findings: 5/5 strength in all four extremities Musculoskeletal: normal tone, normal strength, no muscle wasting Psychiatric: normal affect, normal behavior, A&O x 3 Hosp A/P - Plan ECHO: lateral wall hypokinesis, trace MR, trace TR, EF 50-55% Nuclear stress test: markedly abnormal scan with fairly extensive infarct and ischemic changes with apical inferior lateral dyskinesis, EF 35% This is a 39 year old female who presented with dizziness for the past few days , found to have an acute stroke #Acute small left thalamic and posterior limb left internal capsule infarction - received aspirin 325. CT head showed possible acute sinusitis. CTA showed no stenosis, chest Xray mild cardiomegaly, ECHO showed lateral wall hypokinesis - Neurology consulted and following, recommended continuing aspirin and statin - PT recommending d/c home - ST consulted #NSTEMI - supposed to be on aspirin and plavix as outpatient but was not compliant. Trop elevated, ECHO showed lateral wall hypokinesis. Stress test abnormal with apical and inferior lateral dyskinesis, EF 35% - cardiac cath done today showed 100% occlusion of her ramus and 100% occlusion of circumflex. CABG recommended. DR. Jordan was consulted, stated patient is not candidate for CABG at this time unless she has a PFO and even if she does, to wait one month after stroke - will resume plavix 75 mg, change aspirin to 81 mg daily #Hypertension - BP 170 this am - increased coreg to 6.25 mg bid, increase lisinopril to 5 mg daily Dispo: d/c in the am Code status: full code
[2019-09-19] MEDS: Atorvastatin Calcium 40 MG TAB PO SCH (21:25)
[2019-09-20] MEDS: Meclizine HCl 25 MG TAB PO SCH (05:49)
[2019-09-20 07:10] VITALS: TEMP 97.9
[2019-09-20] MEDS: Carvedilol 6.25 MG TAB PO SCH (08:55)
[2019-09-20] MEDS: Famotidine 20 MG TAB PO SCH (08:58)
[2019-09-20] MEDS ORDERED: Clopidogrel Bisulfate 75 MG TAB PO SCH (09:00)
[2019-09-20] MEDS ORDERED: Lisinopril 2.5 MG TAB PO SCH (09:00)
[2019-09-20] MEDS ORDERED: Aspirin 81 mg Enteric Coated Tablet PO SCH (09:00)
[2019-09-20 12:20] VITALS: BP 155/69
--- NOTE | 2019-09-20 17:39 | CON ---
DATE OF CONSULTATION: 09/19/2019 REQUESTING PHYSICIAN: Dr. Chin. CHIEF COMPLAINT: Blurry vision. HISTORY OF PRESENT ILLNESS: The patient is a 39-year-old woman, who about 2 years ago presented with myocardial infarction and underwent stenting of an occluded ramus intermedius. She failed to keep followup and while she was supposed to be on aspirin, Plavix, Coreg, lisinopril, and Lipitor. It appears that she has really only been taking a baby aspirin a day. She presented with a fairly sudden onset of blurry vision. She apparently had some confusion or mental status changes. She had some difficulty speaking mostly manifests as difficulty in picking out her words and she had some drooping of her left eyelid. She had a mildly elevated troponin and although her CT scan did not show any acute changes. Her MRI was consistent with acute infarctions of the medial left thalamus and posterior limb of the left internal capsule. CT angiography did not show any obvious cervical or intracranial vascular disease to account for her CVA. Because of her mildly elevated troponin, she underwent nuclear stress testing that was markedly abnormal with fairly large defect involving the lateral wall, anteroapical region, and the basal lateral region. Echocardiography showed an LVEF of around 50% or 55% with hypokinesis of the lateral wall. Cardiac catheterization demonstrated some very mild disease in her right coronary system and some minimal luminal irregularity in the LAD, but showed reocclusion of her ramus and another obtuse marginal. The angiogram from September of 2017 showed that the ramus was a fairly large arborized vessel that extended out towards the apex. PAST MEDICAL HISTORY: The patient's past medical history is significant for her coronary artery disease and hypertension. She denies any known history of diabetes. SOCIAL HISTORY: She smokes from half to a pack of cigarettes a day (the friends who were with her during my interview indicated that she smokes closer to a pack a day, when the patient said that she has smoked about 6 to 8 cigarettes a day). FAMILY HISTORY: Significant for her father having had a heart attack at age 41 and her mother having in her 60s of complications of lung disease. REVIEW OF SYSTEMS: Negative for any antecedent eye, speech, facial, or extremity symptoms consistent with TIAs. She denies any shortness of breath. She denies any chest pain since her stenting two years ago. PHYSICAL EXAMINATION: GENERAL: She is 5 feet 4 inches and weighs 254 pounds. Her heart rate is in the low to mid 60s, blood pressure 135/67, and room air O2 saturations are 97%. HEENT: She has some drooping to her left eyelid. NECK: No JVD. No carotid bruits. CHEST: Clear to auscultation. She has regular rate and rhythm with no gallops or murmurs. I had difficult time appreciating any splits in S1 and S2. ABDOMEN: Obese, soft, and nontender. EXTREMITIES: She has palpable radial, dorsalis pedis, and posterior tibial pulses. No clubbing, cyanosis, or edema. No obvious varicosities. NEUROLOGIC: She has some drooping of her left eyelid. Otherwise, cranial nerves 2 through 12 are grossly intact. Her speech seemed appropriate with respect to words that she was saying and there was no dysarthria, but her speech did seem a little bit slow. Upper and lower extremity strength seemed grossly normal. LABORATORY DATA: On laboratory exam; white count 11.7, hemoglobin 13.5, hematocrit 40.7, and platelets 376,000. Her electrolytes were normal. Her glucose was 71. Her troponins were 0.075, 0.094, and 0.084. Her BNP was 103.5. TSH was 0.4786. Fasting lipids were triglycerides of 89, cholesterol 186, LDL of 132, and HDL of 36. Tox screen was negative. Her UA showed small amount of protein, specific gravity 1.060, and ketones. Her chest x-ray showed cardiomegaly with cardiothoracic ratio of around 65% per cardiac catheterization as described above. Ventriculogram was not done, but the LV pressure was 179/15 with an EDP of 33. An aortic pressure on pullback was 164/94 with a mean of 123. IMPRESSION AND RECOMMENDATIONS: Unless some suggestion of, for example of atrial septal defect or patent foramen ovale that would account for the stroke that would need to be repaired. I would not surgically address her coronary artery disease is primarily involving one system and her ventricular function is still good and she is asymptomatic with respect to her heart, which does not appear to have any cervical carotid disease that would account for her cerebrovascular accident. Even if she were to have some reason to undergo open-heart surgery such as the need to repair a patent foramen ovale or atrial septal defect. I would prefer to delay it for a month or so following her stroke. I agree with the Dr. Chin's assessment. When I talked to him that she seems to be in a bit of denial and I had a talk with her about the gravity of her situation that she needs to start taking better care of herself. She needs to get her blood pressure and lipids under better control and she needs to lose weight and spoke with the two friends that were visiting her suggesting that they all get involved in some sort of physical activity together to lend their moral support in her undertaking. Job ID: [id number]
--- NOTE | 2019-09-20 19:13 | PRG ---
DATE OF SERVICE: 09/20/2019 SUBJECTIVE: Ms. Ferguson is doing well. No current complaints. No chest pain or pressure. She continues to have difficulty with vision in her left eye. OBJECTIVE: VITAL SIGNS: Blood pressure 155/69, pulse 68, temperature 97.9. LUNGS: Clear to auscultation. HEART: Regular rate and rhythm. ABDOMEN: Soft, nontender, nondistended. EXTREMITIES: No edema. IMPRESSION: 1. Severe coronary artery disease. 2. Recent stroke. 3. Previous myocardial infarction. 4. Noncompliance. 5. Tobacco abuse. RECOMMENDATIONS: I once again visit with Ms. Ferguson today. She is unsure whether she can take long-term aspirin and Plavix for at least 6 months. She has been turned down for bypass surgery by Dr. Witt. Based on her anatomy, he felt he would be able to bypass her OM and ramus only, but would not be able to bypass her right coronary artery. Her LAD is free of significant stenosis. Also several of my colleagues reviewed her films. We were all came to the conclusion that stent placement is not in her best interest given her lack of using drug-coated stents, significant tortuosity within the circumflex artery and placement of a long stent within the circumflex artery, small vessel within the circumflex artery, multiple stents (4 to 5 stents) likely needed, difficulty on revascularization of the completely occluded stent to the ramus. At this point, we will continue to treat medically. Recommend aspirin and Plavix in addition to beta-freddy therapy and statin therapy. We will consider Imdur if symptoms develop, although the patient has not had any symptoms of chest pain, pressure, or shortness of breath. Job ID: [id number]
--- NOTE | 2019-09-21 01:04 | DIS ---
DATE OF ADMISSION: 09/15/2019 DATE OF DISCHARGE: 09/20/2019 DISCHARGE DIAGNOSES: Acute left thalamic and posterior limb internal capsule stroke, [id number] myocardial infarction, hypertension, leukocytosis. CONSULTATION: 1. Neurology with Dr. Patricia Moreira. 2. Dr. Salazar Banda with Cardiology. PROCEDURES: Cardiac cath on 09/15. BRIEF HISTORY OF PRESENT ILLNESS: This is a 39-year-old female with a past medical history of NSTEMI in the past, hypertension, who presented to the emergency room with dizziness. She was also noted to have trouble finding words. In the emergency room, she had abnormal [id number] test and indeterminate troponin. CT of the brain was negative and CTA was also negative. The patient was admitted for stroke workup. HOSPITAL COURSE: Acute left thalamic and posterior limb left internal capsule stroke: The patient had a CTA, which showed no stenosis. She had a chest x-ray which showed mild cardiomegaly. MRI of her brain showed acute small left thalamic and posterior limb left internal capsule stroke. Neurology was consulted and recommended resuming her aspirin and her statin for stroke prophylaxis. She did have an echocardiogram done, which showed no thrombus. However, she did not have a bubble study to see if she has a shunt. She was also restarted on her Plavix given her restenoses of her ramus. She was seen by Physical therapy, Occupational Therapy, and Speech and thought to be stable for discharge home. She should follow up with Dr. Moreira in 2 weeks. On exam, the patient's word-finding difficulties have improved and she is oriented x3. She does have bilateral diplopia on lateral gaze, but her visual acuity is intact. She also has mild ptosis on the left eye and mild dysconjugate gaze. She will be seen by Ophthalmology with Dr. Pradeep Smith tomorrow at 8:30 in the morning for further assessment of her visual deficits. NSTEMI: The patient was noted to have elevated troponin up to 0.9. Echocardiogram done showed lateral wall hypokinesis with an EF of 50% to 55%. The patient underwent a stress test on the , which showed extensive infarct and ischemic changes with apical inferior and lateral dyskinesis with an EF of 35%. Cardiology was consulted and the patient underwent a cardiac cath, which showed 100% occlusion of her ramus, 100% occlusion of her circumflex. The patient reports that she was noncompliant with her Plavix over the past year. CABG was recommended. Dr. Jordan was consulted and stated the patient is not a candidate for CABG at this time due to her noncompliance and a recent stroke. She may be a candidate if she has a PFO; however, he advised to wait at least one month after her stroke. Further workup with echo and bubble study can be done as an outpatient. I had a long discussion with family members that the patient needs to show that she is compliant with her medications prior to reconsideration of any additional procedures. She was resumed on aspirin 81 daily and Plavix 75 mg daily. Her Coreg was increased to 6.25 b.i.d., and lisinopril was increased to 5 mg daily. Hypertension: The patient had blood pressures of 160s to 170s while in the hospital. Her Coreg was increased to 6.25 mg b.i.d. by Cardiology and her lisinopril was increased to 5 mg. Her blood pressure on the day of discharge was in the 140s to 150s. The patient should follow up with her PCP in a week. DISCHARGE PHYSICAL EXAMINATION: VITAL SIGNS: Temperature 97.9, HR 68, RR 16, O2 saturation 98% on room air, BP 163/84. GENERAL: The patient is alert, awake, oriented x3. CVS: Regular rate and rhythm with no murmurs, rubs, or gallops. LUNGS: Clear to auscultation bilaterally. ABDOMEN: Positive bowel sounds, soft, nontender, nondistended. NEURO: The patient's cranial nerves 2 through 12 are intact. She has intact visual acuity on both sides. She does report some diplopia on lateral gaze bilaterally. She does have some ptosis of her left eye and a mild dysconjugate gaze. She has 5/5 strength in her upper and lower extremities. Sensation is intact in all 4 extremities. PERTINENT LABORATORY DATA: CBC on : is unremarkable. BMP on : is essentially unremarkable. Troponin I :0.075, 0.094, 0.084. Lipid panel :on , shows LDL of 132, HDL 36, cholesterol 186. TSH :is 0.35. UA :showed 60 ketones. There is no evidence of UTI. U-tox: was negative. CT brain on 09/15: showed scattered air-fluid levels which can be seen with acute sinusitis. No acute intracranial abnormality. CTA on 09/15: shows no significant stenosis. Chest x-ray on 09/15: no acute process. Mild cardiomegaly. MRI brain on : shows acute small left thalamic and posterior limb left internal capsule infarction. Stress test on 09/16: evidence of fairly extensive ischemia including anterior apical region and some basilar lateral wall. EF of 36%. Echo : EF 50% to 55% with lateral wall hypokinesis. Trace MR, trace TR. DISCHARGE ACTIVITY: As tolerated. DIET: Heart healthy diet. DISCHARGE CONDITION: Stable. DISPOSITION: Home. DISCHARGE MEDICATIONS: 1. Aspirin 81 mg p.o. daily. 2. Atorvastatin 40 mg p.o. at bedtime. 3. Coreg 6.25 mg p.o. b.i.d. 4. Plavix 75 mg p.o. daily. 5. Lisinopril 5 mg p.o. daily. DISCHARGE INSTRUCTIONS: The patient is to follow up with her PCP in a week. She should follow up with Dr. Chin in 2 weeks and be compliant with her aspirin and her Plavix and her blood pressure medicines. She should follow up with Neurology, Dr. Moreira in 2 weeks. She should see Dr. Pradeep Smith with Ophthalmology tomorrow at 8:30 in the morning for further evaluation of her visual deficits. Job ID: [id number] [id number]
== END 2019-09-20 12:20 | disposition home or self-care (01) | DRG 64 ==
LOC: ERS 14:11 → 2SE 20:59 → OBSVTOIN 20:59
PROVIDERS: ADMIT Internal Medicine; ATTEND Internal Medicine
PROC: 4A023N7 Measurement of Cardiac Sampling and Pressure, Left Heart, Percutaneous Approach (ICD-10-PCS; principal; 2019-09-19)
PROC: B2111ZZ Fluoroscopy of Multiple Coronary Arteries using Low Osmolar Contrast (ICD-10-PCS; 2019-09-19)
PROC: B2151ZZ Fluoroscopy of Left Heart using Low Osmolar Contrast (ICD-10-PCS; 2019-09-19)
DX: I63.9 Cerebral infarction, unspecified (principal); I21.4 Non-ST elevation (NSTEMI) myocardial infarction; I10 Essential (primary) hypertension; D72.829 Elevated white blood cell count, unspecified; E78.00 Pure hypercholesterolemia, unspecified; I25.10 Atherosclerotic heart disease of native coronary artery without angina pectoris; F17.210 Nicotine dependence, cigarettes, uncomplicated; I25.2 Old myocardial infarction; Z91.14 Patient's other noncompliance with medication regimen
CPT/HCPCS: 36415; 70450; 70496; 70498; 70551; 71045; 78452; 80053; 80061; 80306; 80307; 81003; 82140; 82550; 82553; 83690; 83735; 83880; 84443; 84484; 84703; 85025; 93005; 93017; 93306; 93458; 96360; 96361; 99152; A9500; C1769; J0153; J0360; J1644; J1650; J2250; J3010; J8597; Q9967